=== PATIENT | male | born 1965 ===

== ENCOUNTER 2017-01-09 09:34 | Inpatient (IN) | payer SELFPAY ==
[2017-01-09 10:36] LABS: BASO # 0.1 K/uL (0.0-0.2); BASO % 1.1 % (0.0-2.0); EOS # 0.1 K/uL (0.0-0.7); HEMATOCRIT 48.1 % (35.0-51.0); LYMPH # 0.7 K/uL (1.0-4.3); LYMPH % 13.9 % (20.0-40.0); MEAN CELL VOLUME 90.8 fL (80.0-94.0); MEAN CORPUSCULAR HEMOGLOBIN 30.8 pg (27.0-31.0); MEAN CORPUSCULAR HGB CONC 33.9 g/dL (33.0-37.0); MEAN PLATELET VOLUME 9.3 fL (7.2-11.7); MONO # 0.4 K/uL (0.0-0.8); MONO % 8.1 % (0.0-10.0); NRBC % 0.1 % (0.0-2.0); RED CELL DISTRIBUTION WIDTH 12.8 % (11.5-14.5); WHITE BLOOD COUNT 4.9 K/uL (4.8-10.8)
[2017-01-09 10:41] LABS: INR 1.1
[2017-01-09 10:44] LABS: CHLORIDE 95 mmol/L (98-107); POTASSIUM 4.2 mmol/L (3.6-5.2); SODIUM 133 mmol/L (132-148)
[2017-01-09 10:46] LABS: AST/SGOT 37 U/L (17-59); CARBON DIOXIDE 24 mmol/L (22-30); GFR AFRICAN-AMERICAN > 60
[2017-01-09 10:47] LABS: ALB/GLOB RATIO 1.3 (1.0-2.1); ALKALINE PHOSPHATASE 72 U/L (38-126); ALT/SGPT 61 U/L (21-72); BLOOD UREA NITROGEN 14 mg/dL (9-20); TOTAL PROTEIN 7.2 g/dL (6.3-8.3)
[2017-01-09 11:13] LABS: GLUCOSE,RANDOM 519 mg/dL (75-110)
[2017-01-09] MEDS ORDERED: Sodium Chloride 0.9% 1,000 ML IV ONE (11:25)
[2017-01-09] MEDS ORDERED: (Novolin R) Insulin Human Regular 100 units/ml vial IV ONE (11:25)
[2017-01-09] MEDS ORDERED: (Novolin R) Insulin Human Regular 100 units/ml vial ONE ×2 (11:30→17:22)
[2017-01-09] MEDS ORDERED: Sodium Chloride 0.9% 1,000 ML ONE (11:30)
[2017-01-09 11:34] LABS: THYROID STIMULATING HORMONE 1.35 mIU/L (0.46-4.68)
--- NOTE | 2017-01-09 11:35 | C.PDOC ---
History Of Present Illness 51 y/o male, with no significant PMHx, presents to ED for evaluation of intermittent palpitations, and chest pain that started 2 days ago after drinking coffee. Pt describes chest discomfort as pressure. Pt denies shortness of breath, cough, wheezing, fever, chills, nausea, vomiting, diarrhea, diaphoresis, jaw pain, back pain, or lower extremity pain/swelling. No PMD Time Seen by Provider: 01/09/17 09:53 Chief Complaint (Nursing): Palpitations History Per: Patient History/Exam Limitations: no limitations Onset/Duration Of Symptoms: Days (2), Intermittent Episodes Current Symptoms Are (Timing): Still Present Quality: Pressure Associated Symptoms: denies: Nausea, Dyspnea, Diaphoresis, Syncope Modifying Factors: None Exacerbating Factors: None Alleviating Factors: None Additional History Per: Patient Past Medical History Reviewed: Historical Data, Nursing Documentation, Vital Signs Vital Signs: Last Vital Signs Temp 98.5 F 01/09/17 09:43 Pulse 67 01/09/17 11:36 Resp 14 01/09/17 11:36 BP 140/86 01/09/17 11:36 Pulse Ox 95 01/09/17 12:52 - Medical History PMH: No Chronic Diseases Surgical History: No Surg Hx Family History: States: Stroke (father from stroke), ME (brother had ME this year ) - Social History Hx Tobacco Use: Yes (Notes he recently started smoking 6 months ago. ) Hx Alcohol Use: No Hx Substance Use: No - Immunization History Hx Tetanus Toxoid Vaccination: No Hx Influenza Vaccination: No Hx Pneumococcal Vaccination: No Review Of Systems Except As Marked, All Systems Reviewed And Found Negative. Constitutional: Negative for: Fever, Chills Cardiovascular: Positive for: Chest Pain, Palpitations. Negative for: Edema, Light Headedness Respiratory: Negative for: Cough, Shortness of Breath, Wheezing Gastrointestinal: Negative for: Nausea, Vomiting, Abdominal Pain, Diarrhea Skin: Negative for: Rash, Bruising Neurological: Negative for: Headache, Dizziness Physical Exam - Physical Exam Appears: Non-toxic, No Acute Distress, Other (comfortable) Skin: Warm, Dry, No Rash Head: Atraumatic, Normacephalic Eye(s): bilateral: Normal Inspection, EOMI Oral Mucosa: Moist Neck: Normal ROM, Supple Chest: Symmetrical Cardiovascular: Rhythm Regular Respiratory: Normal Breath Sounds, No Rales, No Rhonchi, No Wheezing, Other (Pt speaking in full sentences ) Gastrointestinal/Abdominal: Normal Exam, Soft, No Tenderness Back: No CVA Tenderness Extremity: Normal ROM, No Pedal Edema Neurological/Psych: Oriented x3, Normal Speech ED Course And Treatment - Laboratory Results Result Diagrams: 01/09/17 10:27 01/09/17 10:27 ECG: Interpreted By Me, Viewed By Me ECG Rhythm: Sinus Rhythm Interpretation Of ECG: Normal axis. No acute ST/T wave changes. Rate From EC (bpm) O2 Sat by Pulse Oximetry: 95 (RA) Pulse Ox Interpretation: Normal - Radiology CXR: Interpreted by Me, Viewed By Me CXR Interpretation: Yes: No Acute Disease. No: Infiltrates Progress Note: Blood work, EKG, CXR ordered and reviewed. Pt was given Aspirin, Novolin, and IV fluids. - Physician Consult Information Physician Contacted: Sadie Chisholm Outcome Of Conversation: Discussed patient with Dr. Chisholm, agrees with admission for chest pain, palpitations, r/o ACS, new onset diabetes. Disposition - Disposition Forms: [employer] (Swedish) - Scribe Statement The provider has reviewed the documentation as recorded by the Scribe Dori Aragon All medical record entries made by the Scribe were at my direction and personally dictated by me. I have reviewed the chart and agree that the record accurately reflects my personal performance of the history, physical exam, medical decision making, and the department course for this patient. I have also personally directed, reviewed, and agree with the discharge instructions and disposition.
--- NOTE | 2017-01-09 11:52 | RAD ---
PROCEDURE: CHEST RADIOGRAPH, 1 VIEW HISTORY: palpitations COMPARISON: None available. FINDINGS: LUNGS: Mild venous congestion. Minimal patchy increased markings at the lung bases may represent mild atelectatic changes. PLEURA: No pneumothorax or pleural fluid seen. CARDIOVASCULAR: Normal. OSSEOUS STRUCTURES: No significant abnormalities. VISUALIZED UPPER ABDOMEN: Normal. OTHER FINDINGS: None. IMPRESSION: Mild venous congestion. Minimal patchy increased markings at the lung bases may represent mild atelectatic changes.
--- NOTE | 2017-01-09 14:34 | CP.PCM.HP ---
<Shorty Montenegro - Last Filed: 01/09/17 16:15> History of Present Illness - History of Present Illness History of Present Illness: PGY-1 H&P for [address] Chisholm CC: Chest Pain This is a 51 year old male with no significant PMHx presenting complaining of recently worsened left sided chest pain. Patient began experiencing intermittent chest pain on Monday, but this has exacerbated earlier this morning. Patient was drinking coffee when he felt the pain worsen and also experienced palpitations which have since resolved. Patient states that pain originally was mild pressure but today became a squeezing left sided pain that radiated down the left arm. Patient denies positional changes with regards to pain, pain in relation with meals, shortness of breath, dizziness, diaphoresis, nausea, vomiting. PMHx: Denies PSHx: Denies Allergies: NKDA Social: Smokes 1/3 ppd for last 6 months. Drinks four 22 oz. containers of beer daily. Denies drug use. Works as manager of construction. Lives alone, currently from family. Family Hx: Mother with DM, Father with HTN. Brother experienced RI at age 46, still living. Home Meds: Denies PMD: Denies Present on Admission - Present on Admission Any Indicators Present on Admission: Yes History of Uncontrolled Diabetes: Yes Review of Systems - Constitutional Constitutional: absent: Chills, Fever - EENT Eyes: absent: Change in Vision - Cardiovascular Cardiovascular: Chest Pain, Palpitations (resolved). absent: Diaphoresis, Dyspnea - Respiratory Respiratory: absent: Cough, Dyspnea, Wheezing - Gastrointestinal Gastrointestinal: absent: Abdominal Pain, Constipation, Diarrhea, Nausea, Vomiting - Genitourinary Genitourinary: absent: Dysuria - Neurological Neurological: absent: Dizziness, Numbness, Tingling, Tremor, Weakness - Psychiatric Psychiatric: Other (stated he was stressed due to work and living situation) - Endocrine Endocrine: Palpitations (resolved), Polydipsia, Polyuria. absent: Polyphagia Past Patient History - Infectious Disease Hx of Infectious Diseases: None - Past Social History Smoking Status: Light Smoker < 10 Cigarettes Daily - PSYCHIATRIC Hx Substance Use: No - SURGICAL HISTORY Hx Surgeries: No - ANESTHESIA Hx Anesthesia: No Meds Allergies/Adverse Reactions: Allergies Allergy/AdvReac Type Severity Reaction Status Date / Time No Known Allergies Allergy Verified 01/09/17 09:48 Physical Exam - Constitutional Appears: No Acute Distress - Head Exam Head Exam: ATRAUMATIC, NORMOCEPHALIC - Eye Exam Eye Exam: EOMI, PERRL - ENT Exam ENT Exam: Mucous Membranes Moist - Respiratory Exam Respiratory Exam: Clear to Auscultation Bilateral. absent: Rales, Rhonchi, Wheezes - Cardiovascular Exam Cardiovascular Exam: REGULAR RHYTHM, +S1, +S2. absent: Diastolic murmur, Systolic Murmur - GI/Abdominal Exam GI & Abdominal Exam: Distended, Normal Bowel Sounds, Soft. absent: Tenderness - Neurological Exam Neurological exam: Alert, CN II-XII Intact, Oriented x3 - Skin Skin Exam: Dry, Intact, Normal Color, Warm Results - Vital Signs Recent Vital Signs: Last Vital Signs Temp 98.5 F 01/09/17 09:43 Pulse 67 01/09/17 11:36 Resp 14 01/09/17 11:36 BP 140/86 01/09/17 11:36 Pulse Ox 95 01/09/17 13:03 - Labs Result Diagrams: 01/09/17 10:27 01/09/17 10:27 Labs: Laboratory Results - last 24 hr 01/09/17 01/09/17 01/09/17 10:27 10:27 10:27 WBC 4.9 RBC 5.30 Hgb 16.3 Hct 48.1 MCV 90.8 MCH 30.8 MCHC 33.9 RDW 12.8 Plt Count 176 MPV 9.3 Neut % (Auto) 75.9 H Lymph % (Auto) 13.9 L Meagher % (Auto) 8.1 Eos % (Auto) 1.0 Baso % (Auto) 1.1 Neut # 3.7 Lymph # 0.7 L Meagher # 0.4 Eos # 0.1 Baso # 0.1 PT 12.2 INR 1.1 APTT 29 Sodium 133 Potassium 4.2 Chloride 95 L Carbon Dioxide 24 Anion Gap 18 BUN 14 Creatinine 0.8 Est GFR ( Amer) > 60 Est GFR (Non-Af Amer) > 60 POC Glucose (mg/dL) Random Glucose 519 H* Calcium 9.0 Total Bilirubin 1.0 AST 37 ALT 61 Alkaline Phosphatase 72 Total Creatine Kinase 73 CK-MB (Mass) 0.57 Troponin I < 0.0120 Total Protein 7.2 Albumin 4.0 Globulin 3.2 Albumin/Globulin Ratio 1.3 TSH 3rd Generation 1.35 Urine Opiates Screen Urine Methadone Screen Ur Barbiturates Screen Ur Phencyclidine Scrn Ur Amphetamines Screen U Benzodiazepines Scrn U Oth Cocaine Metabols U Cannabinoids Screen Alcohol, Quantitative 01/09/17 01/09/17 01/09/17 11:19 12:16 14:03 WBC RBC Hgb Hct MCV MCH MCHC RDW Plt Count MPV Neut % (Auto) Lymph % (Auto) Meagher % (Auto) Eos % (Auto) Baso % (Auto) Neut # Lymph # Meagher # Eos # Baso # PT INR APTT Sodium Potassium Chloride Carbon Dioxide Anion Gap BUN Creatinine Est GFR ( Amer) Est GFR (Non-Af Amer) POC Glucose (mg/dL) 253 H Random Glucose Calcium Total Bilirubin AST ALT Alkaline Phosphatase Total Creatine Kinase CK-MB (Mass) Troponin I Total Protein Albumin Globulin Albumin/Globulin Ratio TSH 3rd Generation Urine Opiates Screen Negative Urine Methadone Screen Negative Ur Barbiturates Screen Negative Ur Phencyclidine Scrn Negative Ur Amphetamines Screen Negative U Benzodiazepines Scrn Negative U Oth Cocaine Metabols Negative U Cannabinoids Screen Negative Alcohol, Quantitative < 10 Assessment & Plan - Assessment and Plan (Free Text) Assessment: This is a 51 year old male with no significant PMHx coming in with complaint of chest pain. KITA score 2. Patient is a smoker and alcoholic and has family history of RI at a young age in terms of his brother. Patient admitted to observation telemetry to rule out ACS. Patient is also likely an undiagnosed diabetic based on his blood sugar reading earlier today. Plan: Chest pain and palpitations KITA score 2 Lisinopril 2.5 mg PO daily Lopressor 25 mg PO Q12H Aspirin 81 mg PO daily First set of EKG and troponins unremarkable. Given aspirin 325 mg in ED. F/u 2 more sets of EKG and ELISHA panel. F/u ECHO F/u Lipid Panel Nitroglycerin SL prn Cardiology consult Dr. Mar, help appreciated. TSH in ED unremarkable Elevated Blood Pressure without history of Hypertension Lisinopril 2.5 mg PO daily Lopressor 25 mg PO Q12H Hyperglycemia likely Diabetes Accuchecks qACHS RISS low dose F/u Hemoglobin A1C Dietitian referral History of alcohol abuse CIWA protocol Ativan 1 mg IV Q4 prn Patient counseled on cessation. History of smoking Smoking cessation counselling. Prophylactic Measures Pepcid 20 mg PO BID Heparin 5000 units SC Q8H Heart Healthy Diet 2 gram sodium w. mod consistent CHO <Sadie Chisholm V - Last Filed: 01/09/17 20:10> Results - Vital Signs Recent Vital Signs: Last Vital Signs Temp 98.5 F 01/09/17 09:43 Pulse 68 01/09/17 17:09 Resp 14 01/09/17 17:09 BP 151/98 H 01/09/17 17:57 Pulse Ox 97 01/09/17 17:09 - Labs Result Diagrams: 01/09/17 10:27 01/09/17 10:27 Labs: Laboratory Results - last 24 hr 01/09/17 01/09/17 01/09/17 10:27 10:27 10:27 WBC 4.9 RBC 5.30 Hgb 16.3 Hct 48.1 MCV 90.8 MCH 30.8 MCHC 33.9 RDW 12.8 Plt Count 176 MPV 9.3 Neut % (Auto) 75.9 H Lymph % (Auto) 13.9 L Meagher % (Auto) 8.1 Eos % (Auto) 1.0 Baso % (Auto) 1.1 Neut # 3.7 Lymph # 0.7 L Meagher # 0.4 Eos # 0.1 Baso # 0.1 PT 12.2 INR 1.1 APTT 29 Sodium 133 Potassium 4.2 Chloride 95 L Carbon Dioxide 24 Anion Gap 18 BUN 14 Creatinine 0.8 Est GFR ( Amer) > 60 Est GFR (Non-Af Amer) > 60 POC Glucose (mg/dL) Random Glucose 519 H* Calcium 9.0 Total Bilirubin 1.0 AST 37 ALT 61 Alkaline Phosphatase 72 Total Creatine Kinase 73 CK-MB (Mass) 0.57 Troponin I < 0.0120 Troponin I, Quant Total Protein 7.2 Albumin 4.0 Globulin 3.2 Albumin/Globulin Ratio 1.3 Triglycerides Cholesterol HDL Cholesterol TSH 3rd Generation 1.35 Urine Opiates Screen Urine Methadone Screen Ur Barbiturates Screen Ur Phencyclidine Scrn Ur Amphetamines Screen U Benzodiazepines Scrn U Oth Cocaine Metabols U Cannabinoids Screen Alcohol, Quantitative 01/09/17 01/09/17 01/09/17 11:19 12:16 14:03 WBC RBC Hgb Hct MCV MCH MCHC RDW Plt Count MPV Neut % (Auto) Lymph % (Auto) Meagher % (Auto) Eos % (Auto) Baso % (Auto) Neut # Lymph # Meagher # Eos # Baso # PT INR APTT Sodium Potassium Chloride Carbon Dioxide Anion Gap BUN Creatinine Est GFR ( Amer) Est GFR (Non-Af Amer) POC Glucose (mg/dL) 253 H Random Glucose Calcium Total Bilirubin AST ALT Alkaline Phosphatase Total Creatine Kinase CK-MB (Mass) Troponin I Troponin I, Quant Total Protein Albumin Globulin Albumin/Globulin Ratio Triglycerides Cholesterol HDL Cholesterol TSH 3rd Generation Urine Opiates Screen Negative Urine Methadone Screen Negative Ur Barbiturates Screen Negative Ur Phencyclidine Scrn Negative Ur Amphetamines Screen Negative U Benzodiazepines Scrn Negative U Oth Cocaine Metabols Negative U Cannabinoids Screen Negative Alcohol, Quantitative < 10 01/09/17 01/09/17 17:09 17:29 WBC RBC Hgb Hct MCV MCH MCHC RDW Plt Count MPV Neut % (Auto) Lymph % (Auto) Meagher % (Auto) Eos % (Auto) Baso % (Auto) Neut # Lymph # Meagher # Eos # Baso # PT INR APTT Sodium Potassium Chloride Carbon Dioxide Anion Gap BUN Creatinine Est GFR ( Amer) Est GFR (Non-Af Amer) POC Glucose (mg/dL) 284 H Random Glucose Calcium Total Bilirubin AST ALT Alkaline Phosphatase Total Creatine Kinase 68 CK-MB (Mass) 0.38 Troponin I Troponin I, Quant < 0.0120 Total Protein Albumin Globulin Albumin/Globulin Ratio Triglycerides 223 H Cholesterol 186 HDL Cholesterol 44 TSH 3rd Generation Urine Opiates Screen Urine Methadone Screen Ur Barbiturates Screen Ur Phencyclidine Scrn Ur Amphetamines Screen U Benzodiazepines Scrn U Oth Cocaine Metabols U Cannabinoids Screen Alcohol, Quantitative Attending/Attestation - Attestation I have personally seen and examined this patient.: Yes I have fully participated in the care of the patient.: Yes I have reviewed all pertinent clinical information: Yes Notes (Text): Patient seen, examined, and case discussed with day-time resident. Patient seen in [facility] ED at approximately 1:40PM with the resident. Patient reporting chest pain at rest for past couple of days, with cardiac risk factors including: +smoker, +alcohol use, +newly diagnosed diabetic, +elevated blood pressure, +positive RI- Brother in 40s. Patient also undergoing social stressors with and children who left him and feels alone. patient became a recent alcohol and smoker within the past 3-6 months. patient has not seen a doctor or had prior cardiac workup. Assessment/Plan 1) Chest pain and palpitations * Observe on telemetry * Cardiology consult Dr. Mar, help appreciated. * KITA score 2 (3 CAD risk factors, and episode of angia) * start Lisinopril 2.5 mg PO daily * start Lopressor 25 mg PO Q12H * Given aspirin 325 mg in ED on admission, start Aspirin 81 mg PO daily * First set of EKG and troponins unremarkable. Given aspirin 325 mg in ED on admission * F/u 2 more sets of EKG and ELISHA panel. * F/u ECHO * F/u Lipid Panel * Nitroglycerin SL prn * start Crestor 5mg POqHS 2) Elevated Blood Pressure without history of Hypertension * Lisinopril 2.5 mg PO daily * Lopressor 25 mg PO Q12H 3) Hyperglycemia * Likely newly diagnosed diabetes * Accuchecks qACHS * RISS low dose * F/u Hemoglobin A1C * Dietitian referral * peer educator 4) History of alcohol use; dependence * CIWA protocol * Ativan 1 mg IV Q4 prn * Patient counseled on cessation. patient is recent alcohol user in past 3 months * Psychiatry consult: alcohol use/abuse and depression symptoms 5) History of smoking * Smoking cessation counselling provided at bedside-->patient is aware of the risks associated with smoking including cancer and sequela; prompted by social stressors * Nicotine patch started 6) Prophylactic Measures * Pepcid 20 mg PO BID * Heparin 5000 units SC Q8H * Heart Healthy Diet 2 gram sodium w. mod consistent CHO
[2017-01-09] MEDS ORDERED: Thiamine 100 mg/ml Inj IV SCH (16:45)
[2017-01-09] MEDS: (Novolin R) Insulin Human Regular 100 units/ml vial SC SCH ×2 (17:25→22:53)
[2017-01-09 19:54] LABS: CHOLESTEROL 186 mg/dL (0-199)
[2017-01-10 00:21] VITALS: RESP 20
[2017-01-10 06:31] LABS: BASO % 1.2 % (0.0-2.0); EOS # 0.1 K/uL (0.0-0.7); EOS % 1.5 % (0.0-4.0); HEMATOCRIT 44.1 % (35.0-51.0); LYMPH # 1.1 K/uL (1.0-4.3); LYMPH % 26.4 % (20.0-40.0); MEAN CELL VOLUME 89.2 fL (80.0-94.0); MEAN CORPUSCULAR HEMOGLOBIN 30.6 pg (27.0-31.0); MEAN CORPUSCULAR HGB CONC 34.3 g/dL (33.0-37.0); MEAN PLATELET VOLUME 9.1 fL (7.2-11.7); MONO # 0.3 K/uL (0.0-0.8); MONO % 7.4 % (0.0-10.0); NRBC % 0.1 % (0.0-2.0); RED CELL DISTRIBUTION WIDTH 12.8 % (11.5-14.5); WHITE BLOOD COUNT 4.3 K/uL (4.8-10.8)
[2017-01-10 06:36] LABS: ALB/GLOB RATIO 1.2 (1.0-2.1); ALKALINE PHOSPHATASE 60 U/L (38-126); ALT/SGPT 60 U/L (21-72); AST/SGOT 44 U/L (17-59); BILIRUBIN,TOTAL 0.7 mg/dL (0.2-1.3); BLOOD UREA NITROGEN 14 mg/dL (9-20); CALCIUM 8.8 mg/dl (8.6-10.4); CARBON DIOXIDE 26 mmol/L (22-30); CHLORIDE 99 mmol/L (98-107); GFR AFRICAN-AMERICAN > 60; GLUCOSE,RANDOM 224 mg/dL (75-110); MAGNESIUM 1.8 mg/dL (1.6-2.3); PHOSPHOROUS 3.4 mg/dL (2.5-4.5); POTASSIUM 3.8 mmol/L (3.6-5.2); SODIUM 135 mmol/L (132-148); TOTAL PROTEIN 6.4 g/dL (6.3-8.3)
--- NOTE | 2017-01-10 07:37 | CP.PCM.PN ---
<VinodMarce - Last Filed: 01/10/17 17:15> Subjective - Date & Time of Evaluation Date of Evaluation: 01/10/17 Time of Evaluation: 07:36 - Subjective Subjective: Internal Medicine Progress note for Dr. Chisholm No acute events overnight. Patient states he's feeling better. Patient states he feels social stresses in life. Patient states he denies Fever, chills, chest pain, shortness of breath. Objective - Vital Signs/Intake and Output Vital Signs (last 24 hours): Temp Pulse Resp BP Pulse Ox 98.0 F 67 20 159/99 H 96 01/09/17 23:10 01/09/17 23:10 01/09/17 23:10 01/10/17 06:03 01/09/17 23:10 Intake and Output: 01/10/17 01/10/17 06:59 18:59 Intake Total 240 Balance 240 - Medications Medications: Current Medications Aspirin (Aspirin Chewable) 81 mg PO DAILY [facility] Famotidine (Pepcid) 20 mg PO BID [facility] Last Admin: 01/09/17 17:56 Dose: 20 mg Heparin Sodium (Porcine) (Heparin) 5,000 units SC Q8 [facility] Last Admin: 01/10/17 06:04 Dose: 5,000 units Insulin Human Regular (Novolin R) 0 unit SC ACHS [facility] PRN Reason: Protocol Last Admin: 01/09/17 22:53 Dose: Not Given Lisinopril (Zestril) 2.5 mg PO DAILY [facility] Lorazepam (Ativan) 1 mg IVP Q4H PRN PRN Reason: Symptoms of alcohol withdrawl Metoprolol Tartrate (Lopressor) 25 mg PO Q12H [facility] Last Admin: 01/10/17 06:03 Dose: 25 mg Nicotine (Nicoderm Cq) 1 patch TD DAILY [facility] Nitroglycerin (Nitrostat Sl Tab) 0.4 mg SL Q5M PRN PRN Reason: chest pain Rosuvastatin Calcium (Crestor) 5 mg PO HS [facility] Last Admin: 01/09/17 22:27 Dose: 5 mg Thiamine HCl (Vitamin B1 Tab) 100 mg PO DAILY [facility] - Labs Labs: 01/10/17 06:01 01/10/17 06:01 PT 12.2 SECONDS (9.7-12.2) 01/09/17 10:27 INR 1.1 01/09/17 10:27 APTT 28 SECONDS (21-34) 01/09/17 20:17 - Constitutional Appears: Non-toxic - Head Exam Head Exam: NORMAL INSPECTION - Eye Exam Eye Exam: EOMI, Normal appearance - ENT Exam ENT Exam: Mucous Membranes Moist - Neck Exam Neck Exam: Full ROM - Respiratory Exam Respiratory Exam: Clear to Ausculation Bilateral. absent: Accessory Muscle Use , Respiratory Distress - Cardiovascular Exam Cardiovascular Exam: REGULAR RHYTHM - GI/Abdominal Exam GI & Abdominal Exam: Soft, Normal Bowel Sounds. absent: Tenderness - Extremities Exam Extremities Exam: Full ROM, Normal Inspection - Back Exam Back Exam: NORMAL INSPECTION - Neurological Exam Neurological Exam: Alert, Awake, Oriented x3 - Psychiatric Exam Psychiatric exam: Normal Affect, Normal Mood - Skin Skin Exam: Dry, Intact, Normal Color, Warm Assessment and Plan - Assessment and Plan (Free Text) Assessment: 51 year old male with no significant PMHx coming in with complaint of chest pain ;KITA score 2. Patient is a smoker and alcoholic and has family history of OK at a young age in terms of his brother. Patient admitted to observation telemetry to rule out ACS. Patient is also likely an undiagnosed diabetic based on his blood sugar reading earlier today. Plan: Chest pain and palpitations KITA score 2 Lisinopril 2.5 mg PO daily Lopressor 25 mg PO Q12H Aspirin 81 mg PO daily First set of EKG and troponins unremarkable. Given aspirin 325 mg in ED. EKG follow up ELISHA panel: negative troponin Is F/u ECHO Nitroglycerin SL PRN Cardiology consult Dr. Mar, help appreciated. TSH in ED unremarkable Elevated Triglycerides encourage low salt, low fat diet psychological stressors Follow up psychiatry consult Elevated Blood Pressure without history of Hypertension Lisinopril 2.5 mg PO daily Lopressor 25 mg PO Q12H Hyperglycemia likely Diabetes Accuchecks qACHS RISS low dose Hemoglobin A1C 11.1 Diabetic Dietitian referral History of alcohol abuse [facility] protocol Ativan 1 mg IV Q4 prn Patient counseled on cessation. History of smoking Smoking cessation counselling. Prophylactic Measures Pepcid 20 mg PO BID Heparin 5000 units SC Q8H Heart Healthy Diet 2 gram sodium w. mod consistent CHO <Sadie Chisholm V - Last Filed: 01/10/17 22:05> Objective - Vital Signs/Intake and Output Vital Signs (last 24 hours): Temp Pulse Resp BP Pulse Ox 98.2 F 99 H 20 153/102 H 20 L 01/10/17 15:00 01/10/17 15:00 01/10/17 15:00 01/10/17 15:00 01/10/17 15:00 - Medications Medications: Current Medications Aspirin (Aspirin Chewable) 81 mg PO DAILY [facility] Last Admin: 01/10/17 09:37 Dose: 81 mg Famotidine (Pepcid) 20 mg PO BID [facility] Last Admin: 01/10/17 18:02 Dose: 20 mg Heparin Sodium (Porcine) (Heparin) 5,000 units SC Q8 [facility] Last Admin: 01/10/17 13:24 Dose: 5,000 units Insulin Glargine (Lantus) 10 unit SC HS [facility] Insulin Human Regular (Novolin R) 0 unit SC ACHS [facility] PRN Reason: Protocol Last Admin: 01/10/17 17:00 Dose: 3 unit Lisinopril (Zestril) 2.5 mg PO DAILY [facility] Last Admin: 01/10/17 09:41 Dose: 2.5 mg Lorazepam (Ativan) 1 mg IVP Q4H PRN PRN Reason: Symptoms of alcohol withdrawl Metoprolol Tartrate (Lopressor) 50 mg PO Q12H [facility] Last Admin: 01/10/17 15:15 Dose: 50 mg Nicotine (Nicoderm Cq) 1 patch TD DAILY [facility] Last Admin: 01/10/17 09:37 Dose: 1 patch Nitroglycerin (Nitrostat Sl Tab) 0.4 mg SL Q5M PRN PRN Reason: chest pain Rosuvastatin Calcium (Crestor) 5 mg PO HS [facility] Last Admin: 01/09/17 22:27 Dose: 5 mg Thiamine HCl (Vitamin B1 Tab) 100 mg PO DAILY [facility] Last Admin: 01/10/17 09:42 Dose: 100 mg - Labs Labs: 01/10/17 06:01 01/10/17 06:01 PT 12.2 SECONDS (9.7-12.2) 01/09/17 10:27 INR 1.1 01/09/17 10:27 APTT 28 SECONDS (21-34) 01/09/17 20:17 Attending/Attestation - Attestation I have personally seen and examined this patient.: Yes I have fully participated in the care of the patient.: Yes I have reviewed all pertinent clinical information, including history, physical exam and plan: Yes Notes (Text): Patient seen, examined, and case discussed with day-time resident. Patient seen this afternoon. Pat denies acute complaints. Unable to find EKGs ordered with the ROMIs; checked the chart not present and not uploaded on [employer]. Echocardiogram completed but pending read. patient's blood pressure uncontrolled-->increased Lopressor 50mg PO bid and given stat dose of Hydralazine 10mg IV X1 when BP: 150/100s later this afternoon. Patient ordered for cardiac stress test to assess for risk assessment. telehealth nurse educator to visit the patient tomorrow. Patient started on Lantus 10 units subqHS and on sliding scale. patient prior to hospitalization is medication naive. Patient reports he lives on food he can buy but does not make any specific diet modifications. Assessment/Plan 1) Chest pain and palpitations * Observe on telemetry-->change for inpatient patient for stress test * Cardiology consult Dr. Mar, help appreciated. * KITA score 2 (3 CAD risk factors, and episode of angia) * start Lisinopril 2.5 mg PO daily * Increase Lopressor 50 mg PO Q12H * Given aspirin 325 mg in ED on admission, start Aspirin 81 mg PO daily * First set of EKG and troponins unremarkable. Given aspirin 325 mg in ED on admission * ELISHA X3 negative * F/u ECHO pending * F/u Lipid Panel * Nitroglycerin SL prn * start Crestor 5mg POqHS 2) Hypertension * newly diagnosed * Lisinopril 2.5 mg PO daily * Lopressor 50 mg PO Q12H 3) Diabetes, uncontrolled, newly diagnosed * Hgba1c: 11 * Accuchecks qACHS * RISS low dose * Dietitian referral * telehealth nurse educator 4) History of alcohol use; dependence * CIWA protocol * Ativan 1 mg IV Q4 prn * Patient counseled on cessation. patient is recent alcohol user in past 3 months * Psychiatry consult: alcohol use/abuse and depression symptoms 5) History of smoking * Smoking cessation counselling provided at bedside-->patient is aware of the risks associated with smoking including cancer and sequela; prompted by social stressors * Nicotine patch started 6) Prophylactic Measures * Pepcid 20 mg PO BID * Heparin 5000 units SC Q8H * Heart Healthy Diet 2 gram sodium w. mod consistent CHO
[2017-01-10] MEDS: (Novolin R) Insulin Human Regular 100 units/ml vial SC SCH ×4 (08:10→22:12)
--- NOTE | 2017-01-10 16:53 | CP.PCM.CON ---
<CHARIS LORA - Last Filed: 01/10/17 18:59> History of Present Illness - History of Present Illness History of Present Illness: Charis Lora DO PGY1 - Cardiology Consult Note for Dr. Mar Consultation for chest pain HPI: 51yo M with no significant PMH presented with complaints of left sided chest pain. Pain initially started the afternoon of 01/06, when he was AT WORK, then got better the next morning after sleeping. He describes his pain and burning, stabbing, and squeezing; associated with SOB; nonradiating. His pain initially decreased in intensity, but persisted and then worsened and began radiating down his left arm on 01/09 at which point he presented to the hospital. Currently he denies any CP, SOB, diaphoresis, palpitations, dizziness , SINGH, N/V, F/C. Of note, patient reports that he is recently from his family for the past 6 months, which is a source of stress for him, and has since started smoking 1/3 PPD and drinking four 22oz beers daily. PMHx: Denies PSHx: Denies Allergies: NKDA Social: Smokes 1/3 ppd for last 6 months; prior smoker 20 pack-year history. Drinks four 22 oz. containers of beer daily. Denies drug use. Works as construction flagger. Lives alone, currently from family. Family Hx: Mother with DM, Father with HTN. Brother experienced [place] at age 46, still living. Home Meds: Denies PMD: Denies ROS: As in HPI Past Patient History - Infectious Disease Hx of Infectious Diseases: None - Past Medical History & Family History Past Medical History?: Yes - Past Social History Smoking Status: Current Some Days Smoker - CARDIAC Hx Cardiac Disorders: No - PULMONARY Hx Respiratory Disorders: No - NEUROLOGICAL Hx Neurological Disorder: No - HEENT Hx HEENT Problems: No - RENAL Hx Chronic Kidney Disease: No - ENDOCRINE/METABOLIC Hx Endocrine Disorders: No - HEMATOLOGICAL/ONCOLOGICAL Hx Blood Disorders: No - INTEGUMENTARY Hx Dermatological Problems: No - MUSCULOSKELETAL/RHEUMATOLOGICAL Hx Musculoskeletal Disorders: No Hx Falls: No - GASTROINTESTINAL Hx Gastrointestinal Disorders: No - GENITOURINARY/GYNECOLOGICAL Hx Genitourinary Disorders: No - PSYCHIATRIC Hx Substance Use: No - SURGICAL HISTORY Hx Surgeries: No - ANESTHESIA Hx Anesthesia: No Meds Allergies/Adverse Reactions: Allergies Allergy/AdvReac Type Severity Reaction Status Date / Time No Known Allergies Allergy Verified 01/09/17 09:48 - Medications Medications: Current Medications Aspirin (Aspirin Chewable) 81 mg PO DAILY [facility] Last Admin: 01/10/17 09:37 Dose: 81 mg Famotidine (Pepcid) 20 mg PO BID [facility] Last Admin: 01/10/17 09:38 Dose: 20 mg Heparin Sodium (Porcine) (Heparin) 5,000 units SC Q8 [facility] Last Admin: 01/10/17 13:24 Dose: 5,000 units Insulin Glargine (Lantus) 10 unit SC HS [facility] Insulin Human Regular (Novolin R) 0 unit SC ACHS [facility] PRN Reason: Protocol Last Admin: 01/10/17 12:05 Dose: 5 unit Lisinopril (Zestril) 2.5 mg PO DAILY [facility] Last Admin: 01/10/17 09:41 Dose: 2.5 mg Lorazepam (Ativan) 1 mg IVP Q4H PRN PRN Reason: Symptoms of alcohol withdrawl Metoprolol Tartrate (Lopressor) 50 mg PO Q12H [facility] Nicotine (Nicoderm Cq) 1 patch TD DAILY [facility] Last Admin: 01/10/17 09:37 Dose: 1 patch Nitroglycerin (Nitrostat Sl Tab) 0.4 mg SL Q5M PRN PRN Reason: chest pain Rosuvastatin Calcium (Crestor) 5 mg PO HS [facility] Last Admin: 01/09/17 22:27 Dose: 5 mg Thiamine HCl (Vitamin B1 Tab) 100 mg PO DAILY [facility] Last Admin: 01/10/17 09:42 Dose: 100 mg Physical Exam - Constitutional Appears: Non-toxic, No Acute Distress - Head Exam Head Exam: ATRAUMATIC, NORMOCEPHALIC - Eye Exam Eye Exam: EOMI, Normal appearance - ENT Exam ENT Exam: Mucous Membranes Moist - Neck Exam Neck exam: Negative for: Lymphadenopathy, Meningismus, Thyromegaly - Respiratory Exam Respiratory Exam: Clear to Auscultation Bilateral. absent: Rhonchi, Wheezes, Respiratory Distress Additional comments: Reclining in bed, comfortable, speaking complete sentences, no respiratory distress - Cardiovascular Exam Cardiovascular Exam: RRR, +S1, +S2. absent: JVD - GI/Abdominal Exam GI & Abdominal Exam: Soft. absent: Tenderness - Extremities Exam Extremities exam: Negative for: calf tenderness, pedal edema - Neurological Exam Neurological exam: Alert, CN II-XII Intact, Oriented x3 - Psychiatric Exam Psychiatric exam: Normal Affect, Normal Mood - Skin Skin Exam: Dry, Intact Results - Vital Signs Recent Vital Signs: Last Vital Signs Temp 98.2 F 01/10/17 15:00 Pulse 99 H 01/10/17 15:00 Resp 20 01/10/17 15:00 BP 153/102 H 01/10/17 15:00 Pulse Ox 20 L 01/10/17 15:00 - Labs Result Diagrams: 01/10/17 06:01 01/10/17 06:01 Labs: Laboratory Results - last 24 hr 01/09/17 01/09/17 01/09/17 17:09 17:29 19:50 WBC RBC Hgb Hct MCV MCH MCHC RDW Plt Count MPV Neut % (Auto) Lymph % (Auto) [place] % (Auto) Eos % (Auto) Baso % (Auto) Neut # Lymph # [place] # Eos # Baso # APTT Sodium Potassium Chloride Carbon Dioxide Anion Gap BUN Creatinine Est GFR ( Amer) Est GFR (Non-Af Amer) POC Glucose (mg/dL) 284 H Random Glucose Hemoglobin A1c 11.1 H Calcium Phosphorus Magnesium Total Bilirubin AST ALT Alkaline Phosphatase Total Creatine Kinase 68 CK-MB (Mass) 0.38 Troponin I, Quant < 0.0120 Total Protein Albumin Globulin Albumin/Globulin Ratio Triglycerides 223 H Cholesterol 186 LDL Cholesterol Direct 127 HDL Cholesterol 44 01/09/17 01/09/17 01/09/17 20:17 22:06 22:56 WBC RBC Hgb Hct MCV MCH MCHC RDW Plt Count MPV Neut % (Auto) Lymph % (Auto) [place] % (Auto) Eos % (Auto) Baso % (Auto) Neut # Lymph # [place] # Eos # Baso # APTT 28 Sodium Potassium Chloride Carbon Dioxide Anion Gap BUN Creatinine Est GFR ( Amer) Est GFR (Non-Af Amer) POC Glucose (mg/dL) 259 H Random Glucose Hemoglobin A1c Calcium Phosphorus Magnesium Total Bilirubin AST ALT Alkaline Phosphatase Total Creatine Kinase 64 CK-MB (Mass) 0.29 Troponin I, Quant < 0.0120 Total Protein Albumin Globulin Albumin/Globulin Ratio Triglycerides Cholesterol LDL Cholesterol Direct HDL Cholesterol 01/10/17 01/10/17 01/10/17 06:01 06:01 06:33 WBC 4.3 L RBC 4.95 Hgb 15.2 Hct 44.1 MCV 89.2 MCH 30.6 MCHC 34.3 RDW 12.8 Plt Count 157 MPV 9.1 Neut % (Auto) 63.5 Lymph % (Auto) 26.4 [place] % (Auto) 7.4 Eos % (Auto) 1.5 Baso % (Auto) 1.2 Neut # 2.7 Lymph # 1.1 [place] # 0.3 Eos # 0.1 Baso # 0.0 APTT Sodium 135 Potassium 3.8 Chloride 99 Carbon Dioxide 26 Anion Gap 14 BUN 14 Creatinine 0.7 L Est GFR ( Amer) > 60 Est GFR (Non-Af Amer) > 60 POC Glucose (mg/dL) 204 H Random Glucose 224 H Hemoglobin A1c Calcium 8.8 Phosphorus 3.4 Magnesium 1.8 Total Bilirubin 0.7 AST 44 ALT 60 Alkaline Phosphatase 60 Total Creatine Kinase CK-MB (Mass) Troponin I, Quant Total Protein 6.4 Albumin 3.5 Globulin 2.9 Albumin/Globulin Ratio 1.2 Triglycerides Cholesterol LDL Cholesterol Direct HDL Cholesterol 01/10/17 01/10/17 12:02 16:02 WBC RBC Hgb Hct MCV MCH MCHC RDW Plt Count MPV Neut % (Auto) Lymph % (Auto) [place] % (Auto) Eos % (Auto) Baso % (Auto) Neut # Lymph # [place] # Eos # Baso # APTT Sodium Potassium Chloride Carbon Dioxide Anion Gap BUN Creatinine Est GFR ( Amer) Est GFR (Non-Af Amer) POC Glucose (mg/dL) 373 H 260 H Random Glucose Hemoglobin A1c Calcium Phosphorus Magnesium Total Bilirubin AST ALT Alkaline Phosphatase Total Creatine Kinase CK-MB (Mass) Troponin I, Quant Total Protein Albumin Globulin Albumin/Globulin Ratio Triglycerides Cholesterol LDL Cholesterol Direct HDL Cholesterol Assessment & Plan - Assessment and Plan (Free Text) Assessment: 51 yo M with no significant PMH presented for worsening CP 1. Chest pain - Patient complains of anginal type chest pain, and has multiple risk factors for CAD - Trop negative x3, EKG shows nonspecific ST-T wave changes - Echocardiogram done, normal EF, mild aortic insufficiency, normal filling pressures - BNP ordered to r/o diastolic heart failure - Fasting lipid panel ordered, pending - Continue ASA, BB, ACEi - Counselled on smoking cessation and abstinence from alcohol - Will conduct exercise stress testing for risk stratification 2. HTN - New diagnosis - Patient presented with hypertensive urgency/emergency, with no prior history of HTN - BP improved by approximately 25% since admission; slowly reduce BP to normal level over the next few weeks - On ACEi and BB - Will continue to monitor and titrate as needed 3. Diabetes Mellitus - New diagnosis - Patient hyperglycemic, with A1c 11 - Currently on basal insulin with SSI coverage - Continue ACEi for renal protection - Maintain euglycemia Patient seen, discussed, and reviewed with attending <Jorge Mar - Last Filed: 01/12/17 01:42> Results - Vital Signs Recent Vital Signs: Last Vital Signs Temp 98.2 F 01/11/17 15:11 Pulse 81 01/11/17 16:00 Resp 20 01/11/17 15:11 BP 125/84 01/11/17 15:11 Pulse Ox 96 01/11/17 15:11 - Labs Result Diagrams: 01/11/17 06:11 01/11/17 06:11 Labs: Laboratory Results - last 24 hr 01/11/17 01/11/17 01/11/17 06:11 06:11 06:26 WBC 4.7 L RBC 5.10 Hgb 15.8 Hct 45.0 MCV 88.3 MCH 31.0 MCHC 35.1 RDW 12.6 Plt Count 153 MPV 9.1 Neut % (Auto) 64.7 Lymph % (Auto) 25.8 [place] % (Auto) 7.3 Eos % (Auto) 1.6 Baso % (Auto) 0.6 Neut # 3.1 Lymph # 1.2 [place] # 0.3 Eos # 0.1 Baso # 0.0 Sodium 136 Potassium 3.8 Chloride 98 Carbon Dioxide 28 Anion Gap 14 BUN 14 Creatinine 0.6 L Est GFR ( Amer) > 60 Est GFR (Non-Af Amer) > 60 POC Glucose (mg/dL) 184 H Random Glucose 199 H Calcium 9.0 Magnesium 1.8 Total Bilirubin 0.8 AST 50 ALT 65 Alkaline Phosphatase 57 Total Protein 6.5 Albumin 3.6 Globulin 2.9 Albumin/Globulin Ratio 1.2 Triglycerides 147 D Cholesterol 178 LDL Cholesterol Direct 134 H HDL Cholesterol 46 25-OH Vitamin D Total 01/11/17 01/11/17 01/11/17 11:08 14:02 16:35 WBC RBC Hgb Hct MCV MCH MCHC RDW Plt Count MPV Neut % (Auto) Lymph % (Auto) [place] % (Auto) Eos % (Auto) Baso % (Auto) Neut # Lymph # [place] # Eos # Baso # Sodium Potassium Chloride Carbon Dioxide Anion Gap BUN Creatinine Est GFR ( Amer) Est GFR (Non-Af Amer) POC Glucose (mg/dL) 342 H 137 H Random Glucose Calcium Magnesium Total Bilirubin AST ALT Alkaline Phosphatase Total Protein Albumin Globulin Albumin/Globulin Ratio Triglycerides Cholesterol LDL Cholesterol Direct HDL Cholesterol 25-OH Vitamin D Total 18.7 L Attending/Attestation - Attestation I have personally seen and examined this patient.: Yes I have fully participated in the care of the patient.: Yes I have reviewed all pertinent clinical information: Yes Notes (Text): 51 year old male with 30 pack year history of smoking presenting with c/o chest pain with atypical features plan for ETT in am
[2017-01-10] MEDS ORDERED: (Lantus) Insulin Glargine, Recombinant SC SCH (22:00)
[2017-01-11 06:24] LABS: BASO % 0.6 % (0.0-2.0); EOS # 0.1 K/uL (0.0-0.7); EOS % 1.6 % (0.0-4.0); LYMPH # 1.2 K/uL (1.0-4.3); LYMPH % 25.8 % (20.0-40.0); MEAN CELL VOLUME 88.3 fL (80.0-94.0); MEAN CORPUSCULAR HGB CONC 35.1 g/dL (33.0-37.0); MEAN PLATELET VOLUME 9.1 fL (7.2-11.7); MONO # 0.3 K/uL (0.0-0.8); MONO % 7.3 % (0.0-10.0); RED CELL DISTRIBUTION WIDTH 12.6 % (11.5-14.5); WHITE BLOOD COUNT 4.7 K/uL (4.8-10.8)
[2017-01-11 06:37] LABS: ALB/GLOB RATIO 1.2 (1.0-2.1); ALKALINE PHOSPHATASE 57 U/L (38-126); ALT/SGPT 65 U/L (21-72); AST/SGOT 50 U/L (17-59); BILIRUBIN,TOTAL 0.8 mg/dL (0.2-1.3); BLOOD UREA NITROGEN 14 mg/dL (9-20); CARBON DIOXIDE 28 mmol/L (22-30); CHLORIDE 98 mmol/L (98-107); CHOLESTEROL 178 mg/dL (0-199); GFR AFRICAN-AMERICAN > 60; GLUCOSE,RANDOM 199 mg/dL (75-110); MAGNESIUM 1.8 mg/dL (1.6-2.3); POTASSIUM 3.8 mmol/L (3.6-5.2); SODIUM 136 mmol/L (132-148); TOTAL PROTEIN 6.5 g/dL (6.3-8.3)
[2017-01-11] MEDS: (Novolin R) Insulin Human Regular 100 units/ml vial SC SCH ×2 (08:03→11:52)
--- NOTE | 2017-01-11 11:00 | CP.PCM.PN ---
<CHARIS LORA - Last Filed: 01/11/17 16:33> Subjective - Date & Time of Evaluation Date of Evaluation: 01/11/17 Time of Evaluation: 10:10 - Subjective Subjective: Charis Lora DO PGY1 - Cardiology Progress Note Patient seen and examined at bedside. This morning, he denied any CP, SOB, palpitations, diaphoresis, SINGH, dizziness, leg pain or swelling. He went for regular exercise stress test this morning, and was noted to have symptoms of peripheral vascular disease, claudication in his legs, but no chest pain and no signs of active ischemia on EKG. He tolerated the procedure well and recovered normally. Objective - Vital Signs/Intake and Output Vital Signs (last 24 hours): Temp Pulse Resp BP Pulse Ox 98.1 F 68 20 146/95 H 95 01/10/17 23:20 01/11/17 00:05 01/10/17 23:20 01/10/17 23:20 01/10/17 23:20 Intake and Output: 01/11/17 01/11/17 06:59 18:59 Intake Total 480 Balance 480 - Medications Medications: Current Medications Aspirin (Aspirin Chewable) 81 mg PO DAILY [facility] Last Admin: 01/11/17 10:36 Dose: 81 mg Famotidine (Pepcid) 20 mg PO BID [facility] Last Admin: 01/11/17 10:37 Dose: 20 mg Heparin Sodium (Porcine) (Heparin) 5,000 units SC Q8 [facility] Last Admin: 01/11/17 05:30 Dose: 5,000 units Insulin Glargine (Lantus) 10 unit SC HS [facility] Last Admin: 01/10/17 22:19 Dose: 10 units Insulin Human Regular (Novolin R) 0 unit SC ACHS [facility] PRN Reason: Protocol Last Admin: 01/11/17 08:03 Dose: Not Given Lisinopril (Zestril) 2.5 mg PO DAILY [facility] Last Admin: 01/11/17 10:37 Dose: 2.5 mg Lorazepam (Ativan) 1 mg IVP Q4H PRN PRN Reason: Symptoms of alcohol withdrawl Metoprolol Tartrate (Lopressor) 50 mg PO Q12H [facility] Last Admin: 01/11/17 02:30 Dose: Not Given Nicotine (Nicoderm Cq) 1 patch TD DAILY [facility] Last Admin: 01/11/17 10:37 Dose: 1 patch Nitroglycerin (Nitrostat Sl Tab) 0.4 mg SL Q5M PRN PRN Reason: chest pain Rosuvastatin Calcium (Crestor) 5 mg PO HS [facility] Last Admin: 01/10/17 22:18 Dose: 5 mg Thiamine HCl (Vitamin B1 Tab) 100 mg PO DAILY [facility] Last Admin: 01/11/17 10:36 Dose: 100 mg - Labs Labs: 01/11/17 06:11 01/11/17 06:11 PT 12.2 SECONDS (9.7-12.2) 01/09/17 10:27 INR 1.1 01/09/17 10:27 APTT 28 SECONDS (21-34) 01/09/17 20:17 - Constitutional Appears: Non-toxic, No Acute Distress - Head Exam Head Exam: ATRAUMATIC, NORMOCEPHALIC - Eye Exam Eye Exam: EOMI, Normal appearance - ENT Exam ENT Exam: Mucous Membranes Moist - Neck Exam Neck Exam: Full ROM, Normal Inspection - Respiratory Exam Respiratory Exam: Clear to Ausculation Bilateral. absent: Rales, Rhonchi, Wheezes - Cardiovascular Exam Cardiovascular Exam: RRR, +S1, +S2 - GI/Abdominal Exam GI & Abdominal Exam: Soft. absent: Tenderness - Extremities Exam Extremities Exam: absent: Calf Tenderness, Pedal Edema - Neurological Exam Neurological Exam: Alert, Awake, Oriented x3 - Psychiatric Exam Psychiatric exam: Normal Affect, Normal Mood - Skin Skin Exam: Dry, Intact Assessment and Plan - Assessment and Plan (Free Text) Assessment: 51 yo M with no significant PMH presented for worsening CP Plan: 1. Chest pain - Patient complained of anginal type chest pain, and has multiple risk factors for CAD - Trop negative x3, EKG shows nonspecific ST-T wave changes - Echocardiogram done, normal EF, mild aortic insufficiency, normal filling pressures - BNP normal - Fasting lipid panel shows elevated LDL, otherwise normal - Continue ASA, BB, ACEi - Counselled on smoking cessation and abstinence from alcohol - Exercise stress test this AM significant for symptoms of PAD - Patient should be discharged on ASA, Statin, BB, and Imdur - Patient should follow up in 1-2 weeks for further evaluation and management of PAD 2. HTN - New diagnosis - Patient presented with hypertensive urgency with no prior history of HTN - BP improved by approximately 25% since admission; slowly reduce BP to normal level over the next few weeks - On ACEi and BB - Will continue to monitor and titrate as needed 3. Diabetes Mellitus - New diagnosis - Patient hyperglycemic, with A1c 11 - Currently on basal insulin with SSI coverage - Continue ACEi for renal protection - Maintain euglycemia Patient seen, discussed, and reviewed with attending <Jorge Mar - Last Filed: 01/12/17 01:44> Objective - Vital Signs/Intake and Output Vital Signs (last 24 hours): Temp Pulse Resp BP Pulse Ox 98.2 F 81 20 125/84 96 01/11/17 15:11 01/11/17 16:00 01/11/17 15:11 01/11/17 15:11 01/11/17 15:11 - Labs Labs: 01/11/17 06:11 01/11/17 06:11 PT 12.2 SECONDS (9.7-12.2) 01/09/17 10:27 INR 1.1 01/09/17 10:27 APTT 28 SECONDS (21-34) 01/09/17 20:17
--- NOTE | 2017-01-11 14:12 | CP.PCM.PN ---
<Marce Brock - Last Filed: 01/11/17 14:12> Subjective - Date & Time of Evaluation Date of Evaluation: 01/11/17 Time of Evaluation: 14:10 - Subjective Subjective: Internal Medicine progress note for Dr. Chisholm Patient seen and examined at bedside. No acute events overnight. Patient states he had some numbness of his feet. He's never seen a foot doctor before. Patient is having diabetic education referral and to be discharged on imdur, aspirin, beta brenda per Dr. Mar. Patient made aware of plans. Patient was given information about clinic appointment to follow up for diabetes treatment and other health concerns. Objective - Vital Signs/Intake and Output Vital Signs (last 24 hours): Temp Pulse Resp BP Pulse Ox 98.1 F 68 20 146/95 H 95 01/10/17 23:20 01/11/17 07:45 01/10/17 23:20 01/10/17 23:20 01/10/17 23:20 Intake and Output: 01/11/17 01/11/17 06:59 18:59 Intake Total 480 Balance 480 - Medications Medications: Current Medications Aspirin (Aspirin Chewable) 81 mg PO DAILY [facility] Last Admin: 01/11/17 10:36 Dose: 81 mg Famotidine (Pepcid) 20 mg PO BID [facility] Last Admin: 01/11/17 10:37 Dose: 20 mg Glipizide (Glucotrol) 5 mg PO ACB [facility] Last Admin: 01/11/17 11:56 Dose: 5 mg Heparin Sodium (Porcine) (Heparin) 5,000 units SC Q8 [facility] Last Admin: 01/11/17 14:05 Dose: 5,000 units Insulin Glargine (Lantus) 10 unit SC HS [facility] Last Admin: 01/10/17 22:19 Dose: 10 units Insulin Human Regular (Novolin R) 0 unit SC ACHS [facility] PRN Reason: Protocol Last Admin: 01/11/17 11:52 Dose: 4 unit Isosorbide Mononitrate (Imdur Er) 30 mg PO DAILY [facility] Last Admin: 01/11/17 11:51 Dose: 30 mg Lisinopril (Zestril) 2.5 mg PO DAILY [facility] Last Admin: 01/11/17 10:37 Dose: 2.5 mg Lorazepam (Ativan) 1 mg IVP Q4H PRN PRN Reason: Symptoms of alcohol withdrawl Metformin HCl (Glucophage) 1,000 mg PO BID [facility] Last Admin: 01/11/17 11:56 Dose: 1,000 mg Metoprolol Tartrate (Lopressor) 50 mg PO Q12H [facility] Last Admin: 01/11/17 14:05 Dose: 50 mg Nicotine (Nicoderm Cq) 1 patch TD DAILY [facility] Last Admin: 01/11/17 10:37 Dose: 1 patch Nitroglycerin (Nitrostat Sl Tab) 0.4 mg SL Q5M PRN PRN Reason: chest pain Rosuvastatin Calcium (Crestor) 5 mg PO HS [facility] Last Admin: 01/10/17 22:18 Dose: 5 mg Thiamine HCl (Vitamin B1 Tab) 100 mg PO DAILY [facility] Last Admin: 01/11/17 10:36 Dose: 100 mg - Labs Labs: 01/11/17 06:11 01/11/17 06:11 PT 12.2 SECONDS (9.7-12.2) 01/09/17 10:27 INR 1.1 01/09/17 10:27 APTT 28 SECONDS (21-34) 01/09/17 20:17 - Constitutional Appears: Non-toxic, No Acute Distress - Head Exam Head Exam: NORMAL INSPECTION - Eye Exam Eye Exam: EOMI, Normal appearance - ENT Exam ENT Exam: Mucous Membranes Moist - Neck Exam Neck Exam: Full ROM - Respiratory Exam Respiratory Exam: NORMAL BREATHING PATTERN. absent: Accessory Muscle Use, Respiratory Distress - Cardiovascular Exam Cardiovascular Exam: REGULAR RHYTHM. absent: Bradycardia, Tachycardia - GI/Abdominal Exam GI & Abdominal Exam: Soft. absent: Tenderness - Extremities Exam Extremities Exam: Full ROM. absent: Pedal Edema - Back Exam Back Exam: Full ROM, NORMAL INSPECTION. absent: vertebral tenderness - Neurological Exam Neurological Exam: Alert, Awake, Oriented x3 - Psychiatric Exam Psychiatric exam: Normal Affect, Normal Mood - Skin Skin Exam: Dry, Intact, Normal Color, Warm Assessment and Plan - Assessment and Plan (Free Text) Assessment: 51 year old male with no significant PMHx coming in with complaint of chest pain ;KITA score 2. Patient is a smoker and alcoholic and has family history of OK at a young age in terms of his brother. Patient admitted to observation telemetry to rule out ACS. Plan: Chest pain and palpitations KITA score 2 Lisinopril 2.5 mg PO daily Lopressor 25 mg PO Q12H Aspirin 81 mg PO daily First set of EKG and troponins unremarkable. Given aspirin 325 mg in ED. EKG follow up [facility] panel: negative troponin Is F/u ECHO Nitroglycerin SL PRN Cardiology consult Dr. Mar: patient is to be discharged on imdur, aspirin, beta brenda TSH in ED unremarkable Elevated Triglycerides encourage low salt, low fat diet psychological stressors Follow up psychiatry consult Elevated Blood Pressure without history of Hypertension Lisinopril 2.5 mg PO daily Lopressor 25 mg PO Q12H Diabetes Accuchecks qACHS RISS low dose Hemoglobin A1C 11.1 Diabetic Dietitian referral History of alcohol abuse CIWA protocol Ativan 1 mg IV Q4 prn Patient counseled on cessation. History of smoking Smoking cessation counselling. Prophylactic Measures Pepcid 20 mg PO BID Heparin 5000 units SC Q8H Heart Healthy Diet 2 gram sodium w. mod consistent CHO <Sadie Chisholm V - Last Filed: 01/11/17 23:27> Objective - Vital Signs/Intake and Output Vital Signs (last 24 hours): Temp Pulse Resp BP Pulse Ox 98.2 F 85 20 125/84 96 01/11/17 15:11 01/11/17 15:11 01/11/17 15:11 01/11/17 15:11 01/11/17 15:11 - Labs Labs: 01/11/17 06:11 01/11/17 06:11 PT 12.2 SECONDS (9.7-12.2) 01/09/17 10:27 INR 1.1 01/09/17 10:27 APTT 28 SECONDS (21-34) 01/09/17 20:17 Attending/Attestation - Attestation I have personally seen and examined this patient.: Yes I have fully participated in the care of the patient.: Yes I have reviewed all pertinent clinical information, including history, physical exam and plan: Yes Notes (Text): Patient seen, examined, and case discussed with day-time resident. Patient seen this morning status post completion stress test this morning. Blood pressure controlled with Lopressor 50mg PO Q12H, Lisinopril 2.5mg PO daily , and start Imur ER 30mg PO daily today. Patient visited by tobacco educator and taught how to take sugars. Patient started on Metformin 1000mg PO 2x/day and Glipizide 5mg PO daily for diabetes management. Patient is medication naive and start on PO medication therapy prior to considering insulin. Patient is amenable to lifestyle modifications. Patient is also taught he will need to see annual science teacher and podiatry screenings given sequela of diabetes if remains uncontrolled. Per cardiology-international accountant note, Echocardiogram done, normal EF, mild aortic insufficiency, normal filling pressures and symptomatic for peripheral arterial disease. Recommend to follow-up in 1-2 weeks for further workup with cardiology Discharge order and discharge instructions discussed with day-time resident and patient at bedside. Patient provided follow-up clinic appointment with the [facility] ([phone]) after hospitalization for further diabetes management. Patient recommended to follow-up 1-2 weeks with cardiology for workup for PAD. Patient provided prescriptions for the followin) Lopressor 50mg PO BID (60 tabs/0 refills) 2) Lisinopril 2.5mg PO daily (30 tabs/0 refills) 3) Imdur ER 30mg PO daily (30 tabs/0 refills) 4) Simvastatin 20mg POqHS (30 tabs/0 refills) 5) Metformin 1000mg PO BID (60 tabs/0 refills) 6) Glipizide 5mg PO daily (30 tabs/ 0 refills) 7) Easy Max Glucometer (1 device/0 refill) 8) 1 month test strips and test lancets Discharge diagnoses: 1) Chest pain and palpitations-->Resolved 2) Hypertension--Stable * Lopressor 50mg PO BID * Lisinopril 2.5mg PO daily (30 tabs/0 refills) * Imdur ER 30mg PO daily (30 tabs/0 refills) 3) Diabetes, uncontrolled, newly diagnosed * Hgba1c: 11 * Accuchecks qACHS * Dietitian referral-->education provided * tobacco prevention health educator-->education provided * Metformin 1000mg PO BID * Glipizide 5mg PO daily 4) History of alcohol use; dependence * Patient counseled on cessation. patient is recent alcohol user in past 3 months * Psychiatry consult: alcohol use/abuse and depression symptoms * Patient reports he is feeling ok. * Patient seen by pastoral care-->appreciates help 5) History of smoking * Smoking cessation counselling provided at bedside-->patient is aware of the risks associated with smoking including cancer and sequela; prompted by social stressors * Nicotine patch started 6) Prophylactic Measures * Pepcid 20 mg PO BID * Heparin 5000 units SC Q8H * Heart Healthy Diet 2 gram sodium w. mod consistent CHO
[2017-01-11 16:13] VITALS: BP 125/84; TEMP 98.2; O2SAT 96
[2017-01-12 00:23] VITALS: PULSE 81
--- NOTE | 2017-01-12 06:14 | CP.PCM.DIS ---
Provider - Provider Date of Admission: 01/10/17 22:05 Attending physician: Sadie Chisholm DO Time Spent in preparation of Discharge (in minutes): 35 Diagnosis - Discharge Diagnosis (1) ETOH abuse Status: Chronic (2) Chest pain Status: Resolved (3) Diabetes mellitus Status: Acute Hospital Course - Lab Results Lab Results: Most Recent Lab Values WBC 4.7 K/uL (4.8-10.8) L 01/11/17 06:11 RBC 5.10 Mil/uL (4.40-5.90) 01/11/17 06:11 Hgb 15.8 g/dL (12.0-18.0) 01/11/17 06:11 Hct 45.0 % (35.0-51.0) 01/11/17 06:11 MCV 88.3 fL (80.0-94.0) 01/11/17 06:11 MCH 31.0 pg (27.0-31.0) 01/11/17 06:11 MCHC 35.1 g/dL (33.0-37.0) 01/11/17 06:11 RDW 12.6 % (11.5-14.5) 01/11/17 06:11 Plt Count 153 K/uL (130-400) 01/11/17 06:11 MPV 9.1 fL (7.2-11.7) 01/11/17 06:11 Neut % (Auto) 64.7 % (50.0-75.0) 01/11/17 06:11 Lymph % (Auto) 25.8 % (20.0-40.0) 01/11/17 06:11 [place] % (Auto) 7.3 % (0.0-10.0) 01/11/17 06:11 Eos % (Auto) 1.6 % (0.0-4.0) 01/11/17 06:11 Baso % (Auto) 0.6 % (0.0-2.0) 01/11/17 06:11 Neut # 3.1 K/uL (1.8-7.0) 01/11/17 06:11 Lymph # 1.2 K/uL (1.0-4.3) 01/11/17 06:11 [place] # 0.3 K/uL (0.0-0.8) 01/11/17 06:11 Eos # 0.1 K/uL (0.0-0.7) 01/11/17 06:11 Baso # 0.0 K/uL (0.0-0.2) 01/11/17 06:11 PT 12.2 SECONDS (9.7-12.2) 01/09/17 10:27 INR 1.1 01/09/17 10:27 APTT 28 SECONDS (21-34) 01/09/17 20:17 Sodium 136 mmol/L (132-148) 01/11/17 06:11 Potassium 3.8 mmol/L (3.6-5.2) 01/11/17 06:11 Chloride 98 mmol/L (98-107) 01/11/17 06:11 Carbon Dioxide 28 mmol/L (22-30) 01/11/17 06:11 Anion Gap 14 (10-20) 01/11/17 06:11 BUN 14 mg/dL (9-20) 01/11/17 06:11 Creatinine 0.6 MG/DL (0.8-1.5) L 01/11/17 06:11 Est GFR ( Amer) > 60 01/11/17 06:11 Est GFR (Non-Af Amer) > 60 01/11/17 06:11 POC Glucose (mg/dL) 137 mg/dL (65-110) H 01/11/17 16:35 Random Glucose 199 mg/dL (75-110) H 01/11/17 06:11 Hemoglobin A1c 11.1 % (4.2-6.5) H 01/09/17 19:50 Calcium 9.0 mg/dl (8.6-10.4) 01/11/17 06:11 Phosphorus 3.4 mg/dL (2.5-4.5) 01/10/17 06:01 Magnesium 1.8 mg/dL (1.6-2.3) 01/11/17 06:11 Total Bilirubin 0.8 mg/dL (0.2-1.3) 01/11/17 06:11 AST 50 U/L (17-59) 01/11/17 06:11 ALT 65 U/L (21-72) 01/11/17 06:11 Alkaline Phosphatase 57 U/L (38-126) 01/11/17 06:11 Total Creatine Kinase 64 U/L (55-170) 01/09/17 22:56 CK-MB (Mass) 0.29 ng/mL (0.0-3.38) 01/09/17 22:56 Troponin I < 0.0120 ng/mL (0.00-0.120) 01/09/17 10:27 Troponin I, Quant < 0.0120 ng/mL (0.00-0.120) 01/09/17 22:56 NT-Pro-B Natriuret Pep 78.9 pg/mL (0-900) 01/10/17 19:44 Total Protein 6.5 g/dL (6.3-8.3) 01/11/17 06:11 Albumin 3.6 g/dL (3.5-5.0) 01/11/17 06:11 Globulin 2.9 gm/dL (2.2-3.9) 01/11/17 06:11 Albumin/Globulin Ratio 1.2 (1.0-2.1) 01/11/17 06:11 Triglycerides 147 mg/dL (0-149) D 01/11/17 06:11 Cholesterol 178 mg/dL (0-199) 01/11/17 06:11 LDL Cholesterol Direct 134 mg/dL (0-129) H 01/11/17 06:11 HDL Cholesterol 46 mg/dL (30-70) 01/11/17 06:11 25-OH Vitamin D Total 18.7 NG/ML (30.0-100.0) L 01/11/17 14:02 TSH 3rd Generation 1.35 mIU/L (0.46-4.68) 01/09/17 10:27 Urine Opiates Screen Negative (NEGATIVE) 01/09/17 11:19 Urine Methadone Screen Negative (NEGATIVE) 01/09/17 11:19 Ur Barbiturates Screen Negative (NEGATIVE) 01/09/17 11:19 Ur Phencyclidine Scrn Negative (NEGATIVE) 01/09/17 11:19 Ur Amphetamines Screen Negative (NEGATIVE) 01/09/17 11:19 U Benzodiazepines Scrn Negative (NEGATIVE) 01/09/17 11:19 U Oth Cocaine Metabols Negative (NEGATIVE) 01/09/17 11:19 U Cannabinoids Screen Negative (NEGATIVE) 01/09/17 11:19 Alcohol, Quantitative < 10 mg/dl (0-10) 01/09/17 14:03 - Hospital Course Hospital Course: Discharge Summary for Dr. Chisholm This is a 51 year old male with no significant PMHx presenting complaining of recently worsened left sided chest pain. Patient began experiencing intermittent chest pain on Monday, but this has exacerbated earlier this morning. Patient was drinking coffee when he felt the pain worsen and also experienced palpitations which have since resolved. Patient states that pain originally was mild pressure but today became a squeezing left sided pain that radiated down the left arm. Patient denies positional changes with regards to pain, pain in relation with meals, shortness of breath, dizziness, diaphoresis, nausea, vomiting. 01/10 patient was monitored on CIWA protocol, Ativan 1 mg IV Q4H PRN Patient was admitted to telemetry for the chest pain to rule out ACS. Troponins came back negatie. Patient was placed on: Lisinopril 2.5 mg PO daily Lopressor 25 mg PO Q12H Aspirin 81 mg PO daily Prophylaxis: Pepcid 20 mg PO BID Heparin 5000 units SC Q8H Diet: tu.nr Moderate carb consistent diet Patient's labs came back with high glucose numbers. Further work up reveals a1c of 11.1. Patient explained that he had diabetes and diabetic stem crusher referral was ordered. Patient is having diabetic education referral 01/11 Patient had numbness in feet, likely associated with diabetes, patient educated on importance of foot care. Patient seen by Dr. Mar, Marketing Research Analyst discharged on imdur, aspirin, beta brenda upon discharge Patient discharged with the orders to follow up at the clinic Patient clinic appointment in one week, at this appointment, patient will need to establish care for Diabetes and HTN recommend to follow up with cardiology in 1 to 2 weeks prescriptions to be provided include Aspirin, metformin, glipizide, lisinopril, lopressor, imdur ASA 81mg POQD Glipizide 5 mg POQD Isosorbide mononitrate ER 30 mg POQAM Lisinopril 2.5mgPOQD Metformin 1000mg POBID Lopressor 50mg POQ12H Nicoderm Cq Simvastatin 20mg POQHS - Date & Time of H&P Date of H&P: 01/11/17 Time of H&P: 17:00 Discharge Exam - Head Exam Head Exam: ATRAUMATIC, NORMOCEPHALIC - Eye Exam Eye Exam: EOMI, Normal appearance - ENT Exam ENT Exam: Mucous Membranes Moist - Neck Exam Neck exam: Full Rom - Respiratory Exam Respiratory Exam: NORMAL BREATHING PATTERN. absent: Accessory Muscle Use, Respiratory Distress - Cardiovascular Exam Cardiovascular Exam: REGULAR RHYTHM, +S1, +S2 - GI/Abdominal Exam GI & Abdominal Exam: Soft. absent: Tenderness - Extremities Exam Extremities exam: full ROM - Neurological Exam Neurological exam: Alert, Oriented x3 - Psychiatric Exam Psychiatric exam: Normal Affect, Normal Mood - Skin Skin Exam: Dry, Intact, Normal Color, Warm Discharge Plan - Discharge Medications Prescriptions: Aspirin [Aspirin Chewable] 81 mg PO DAILY #30 chew GlipiZIDE [Glucotrol] 5 mg PO DAILY #30 tab Isosorbide Mononitrate ER [Imdur ER] 30 mg PO QAM #30 tab Lisinopril [Zestril] 2.5 mg PO DAILY #30 tab MetFORMIN [glucoPHAGE] 1,000 mg PO BID #60 tab Metoprolol Tartrate [Lopressor] 50 mg PO Q12H #60 tab Nicotine 21 mg/24 hr [Nicoderm Cq] 1 patch TD DAILY 30 Days patch Simvastatin 20 mg PO HS #30 tablet - Follow Up Plan Condition: GOOD Disposition: HOME/ ROUTINE Instructions: Metoprolol (By mouth), Lisinopril (By mouth), Glipizide (By mouth ), Aspirin (By mouth), Nicotine (Absorbed through the skin), Simvastatin (By mouth), Isosorbide Mononitrate (By mouth), Metformin (By mouth), Chest Pain (DC) , Palpitations (DC), How to Check Your Blood Sugar (DC), Diabetes Insipidus (DC) , Diabetic Ketoacidosis (DC), Diabetic Foot Care (DC), Diabetes Mellitus Type 2 in Adults (DC), Basic Carbohydrate Counting (DC), Meal Planning with the Plate Method (DC), Meal Planning with Diabetes Exchanges (DC) Additional Instructions: Patient clinic appointment in one week, at this appointment, patient will need to establish care for Diabetes and HTN recommend to follow up with cardiology in 1 to 2 weeks prescriptions to be provided include Aspirin, metformin, glipizide, lisinopril, lopressor, imdur Referrals: [facility] [Outside] - 1 Week Jorge Mar MD [Staff Provider] - 1 Week
--- NOTE | 2017-01-12 17:18 | CARD ---
APPROVED REPORT EXAM: Two-dimensional and M-mode echocardiogram with Doppler and color Doppler. Other Information Quality : [employer] : INDICATION Chest Pain Palpitations 2D DIMENSIONS IVSd1.3 (0.7-1.1cm)LVDd4.8 (3.9-5.9cm) PWd0.6 (0.7-1.1cm)LVDs2.9 (2.5-4.0cm) FS (%) 39.4 %LVEF (%)69.8 (>50%) M-Mode DIMENSIONS Left Atrium (MM)3.90 (2.5-4.0cm)Aortic Root2.98 (2.2-3.7cm) Aortic Cusp Exc.1.87 (1.5-2.0cm) Aortic Valve AI P 1/2 [id number] Mitral Valve MV E Mdqxfpgk18.2cm/sMV A Rnninkld58.0cm/sE/A ratio0.9 TDI E/Lateral E'0.0E/Medial E'0.0 Tricuspid Valve TR Peak [id number]/sTR Peak [id number] <Conclusion> Left ventricle: thickness: normal; size: normal; overall ejection fraction: 65%: diastolic filling pressures: normal Mitral valve: annulus: normal: leaflets: normal: excursion: normal; no significant trans-mitral gradient: No significant incompetence: left atrium: normal Aortic valve: leaflets: mild thickening: excursion: normal; no significant trans-aortic gradient:mild incompetence: aortic root: normal Right sided Structures: Pulmonary valve: normal; no significant incompetence; Tricuspid valve: normal; no significant incompetence: Intra-cardiac hemodynamics: pulmonary systolic pressures: normal; central venous pressures: normal No pericardial effusion
== END 2017-01-11 17:33 | disposition home or self-care (01) | DRG 313 ==
LOC: C.ER 09:34 → C.9E 12:46 → C.6T 19:53 → OBSVTOIN 01-10 22:05
PROVIDERS: ADMIT Hospitalist; ATTEND Hospitalist
DX: R07.89 Other chest pain (principal); E11.65 Type 2 diabetes mellitus with hyperglycemia; I10 Essential (primary) hypertension; I16.0 Hypertensive urgency; R20.0 Anesthesia of skin; F10.20 Alcohol dependence, uncomplicated; F17.210 Nicotine dependence, cigarettes, uncomplicated; Z79.84 Long term (current) use of oral hypoglycemic drugs